=== PATIENT | male | born 1955 | race Caucasian/White ===

== ENCOUNTER 2021-10-05 13:02 | Outpatient (CLI) | payer MEDICARE, MEDICAID, SELFPAY ==
--- NOTE | ~2021-10-05 | CT_ITS ---
EXAMINATION: CT lung screening EXAM DATE: 10/05/2021 13:24 INDICATION: Nicotine Dependence Cigarettes TECHNIQUE: Spiral low dose CT of the chest without contrast. Axial, coronal and sagittal images were reviewed. The dose-length product (DLP) for this examination was 225.46 mGy-cm. The exposure was t ailored according to patient size (auto mA exposure control), and iterative reconstruction (ASIR) was used as additional dose reduction technique. There is no prior study for comparison. FINDINGS: Right middle lobe calcified granuloma. Scattered small regions of linear scarring. Mild em physema. Tracheobronchial tree is patent. There is no mediastinal, hilar or axillary lymphadenopat hy. There are no pleural or pericardial effusions. There is no pneumothorax. Heart normal in si ze. There is extensive coronary arterial calcification, arterial sclerosis. Upper abdomen is unrema rkable. There is moderate thoracic spondylosis without osteoblastic or osteolytic lesions identifie d. IMPRESSION: 1. Lung-RADS category 1S, negative (<1%chance of malignancy); recommend continued LDCT screening in 1 year. 2. Extensive coronary artery calcification; consider cardiology evaluation if not recently evaluated. Reviewed, dictated and finalized at location G. IMPRESSION: 1. Lung-RADS category 1S, negative (<1%chance of malignancy); recommend continu ed LDCT screening in 1 year. 2. Extensive coronary artery calcification; consider cardiology evaluation if n ot recently evaluated.
== END 2021-10-05 13:03 | disposition home or self-care (01) ==
PROVIDERS: PCP Internal Medicine; Visit Provider Physician Assistant
DX: F17.210 Nicotine dependence, cigarettes, uncomplicated (principal)
CPT/HCPCS: 71271

== ENCOUNTER 2022-01-26 14:31 | Outpatient (CLI) | payer MEDICARE, MEDICAID, SELFPAY ==
--- NOTE | ~2022-01-26 | US_ITS ---
US arterial ankle brachial ind INDICATION: Right lower extremity edema TECHNIQUE: Segmental pressures and plethysmographic and Doppler waveforms of the brachial and lower e xtremity arteries were obtained. COMPARISON: None. FINDINGS: Right and left brachial artery pressures of 155 mm Hg and 168 mm Hg, respectively, are concordant (no rmal difference <= 30 mmHg). The right ankle-brachial index (SUE) is 0.77 (normal >= 0.9-1.0). The right great toe-brachial index (TBI) is 0.52 (normal >= 0.60). The left SUE is 0.85. The left TBI is 0.53. IMPRESSION: 1. Diminished bilateral ankle and toe brachial indices consistent with mild peripheral arterial disea se. Reviewed, dictated and finalized at location A. IMPRESSION: 1. Diminished bilateral ankle and toe brachial indices consistent with mild per ipheral arterial disease.
== END 2022-01-26 14:32 | disposition home or self-care (01) ==
PROVIDERS: PCP Physician Assistant; Visit Provider Physician Assistant
DX: R60.0 Localized edema (principal); E11.59 Type 2 diabetes mellitus with other circulatory complications
CPT/HCPCS: 93922

== ENCOUNTER 2022-03-03 14:40 | Outpatient (CLI) | payer MEDICARE, MEDICAID, SELFPAY ==
--- NOTE | ~2022-03-03 | CT_ITS ---
EXAMINATION: CT abdomen pelvis wo con DATE: 03/03/2022 15:11 INDICATION: Umbilical hernia without obstruction or gangrene TECHNIQUE: Computed tomography (CT) of the abdomen and pelvis was performed without intravenous contr ast. The dose-length product (DLP) was 1042.60 mGy-cm. Automated exposure control and iterative recon struction technique were employed. COMPARISON: None FINDINGS: Minimal dependent atelectasis is present in the lung bases. The heart size is normal. Punct ate calcifications in an otherwise normal spleen likely represent healed granulomatous disease. The l iver, pancreas, gallbladder, and adrenal glands are normal. There is a 12 mm cyst of the right kidney . The left kidney is unremarkable. No pathologically enlarged abdominal or pelvic lymph nodes are rafal ntified. There is calcified atherosclerosis of the aorta and many of the other arteries. A retroaorti c left renal vein is noted. There is no free intraperitoneal gas or evidence of bowel obstruction. Th e appendix is normal. There is severe lumbar spondylosis. There is a small umbilical hernia containin g fat. IMPRESSION: 1. Small umbilical hernia containing fat. Reviewed, dictated and finalized at location A.
== END 2022-03-03 14:41 | disposition home or self-care (01) ==
PROVIDERS: PCP Physician Assistant; Visit Provider Physician Assistant
DX: K42.9 Umbilical hernia without obstruction or gangrene (principal)
CPT/HCPCS: 74176

== ENCOUNTER → 2022-08-10 11:52 | Outpatient (CLI) | payer MEDICARE, MEDICAID, SELFPAY ==
--- NOTE | ~2022-08-10 | XR_ITS ---
Lumbosacral Spine: AP and lateral views Clinical History: Pain Findings: The normal lordotic curve is maintained. Minimal wedging deformity of T12 and L1 are noted. There is severe degenerative disc narrowing at L2-L3. There is moderate to advanced degenerative dis c narrowing at L1-L2 and L4-L5. The sacroiliac joints are normally outlined. Impression: Minimal anterior wedging deformities of T12 and L1. Degenerative disc disease, as detailed above. Reviewed, dictated and finalized at location M. [facility] Impression: Minimal anterior wedging deformities of T12 and L1. Degenerative disc disease, as detailed above.
== END ==
PROVIDERS: PCP Nurse Practitioner Family; Visit Provider Nurse Practitioner Family
DX: M51.36 Other intervertebral disc degeneration, lumbar region (principal)
CPT/HCPCS: 72100

== ENCOUNTER 2022-12-22 13:28 | Outpatient (CLI) | payer MEDICARE, MEDICAID, SELFPAY ==
--- NOTE | ~2022-12-22 | CT_ITS ---
EXAMINATION: CT lung screening DATE: 12/22/2022 13:52 INDICATION: Personal history nicotine dependence, current smoker with 50 pack year history TECHNIQUE: Computed tomography (CT) of the chest was performed without intravenous contrast. The dose -length product (DLP) was 219.42 mGy-cm. Automated exposure control and iterative reconstruction tech Casper were employed. COMPARISON: 10/05/2021 FINDINGS: There is mild atelectasis of the lungs. Calcified pulmonary nodules and calcified right hil ar and mediastinal lymph nodes are consistent with old granulomatous disease. No pleural effusion or pneumothorax. No pathologically enlarged thoracic lymph nodes are identified. The heart size is tabitha l. There is calcified coronary artery atherosclerosis. There is a small pericardial effusion. Punctat e calcifications in an otherwise normal spleen likely represent healed granulomatous disease. There i s severe thoracic spondylosis. IMPRESSION: 1. Lung-RADS category 1: Negative. Continue annual screening with noncontrast low-dose chest CT in 12 months. Reviewed, dictated and finalized at location F. IMPRESSION: 1. Lung-RADS category 1: Negative. Continue annual screening with noncontrast l ow-dose chest CT in 12 months.
== END 2022-12-22 13:29 | disposition home or self-care (01) ==
PROVIDERS: PCP Nurse Practitioner Family; Visit Provider Nurse Practitioner Family
DX: Z12.2 Encounter for screening for malignant neoplasm of respiratory organs (principal); F17.210 Nicotine dependence, cigarettes, uncomplicated
CPT/HCPCS: 71271

== ENCOUNTER 2023-11-12 12:00 | Inpatient (IN) | payer MEDICARE, MEDICAID, SELFPAY ==
[2023-11-12] VITALS (16 sets, daily range): BP systolic 116–153; BP diastolic 52–92; PULSE 77–142; RESP 12–21; TEMP 36.4–36.6; O2SAT 97–100; BMI 27.2
--- NOTE | ~2023-11-12 | XR_ITS ---
EXAMINATION: XR chest 1V portable DATE: 11/12/2023 14:18 INDICATION: Trauma. TECHNIQUE: A single frontal view of the chest was obtained on 2 radiographs. COMPARISON: Chest CT 12/22/2022 FINDINGS: A calcified right lung nodule and calcified right hilar and mediastinal lymph nodes are con sistent with old granulomatous disease. No pleural effusion or pneumothorax. The heart size is normal . There are surgical changes of the cervical spine. IMPRESSION: 1. No acute cardiopulmonary disease. Reviewed, dictated and finalized at location A.
--- NOTE | ~2023-11-12 | CT_ITS ---
EXAMINATION: CT lumbar spine wo con DATE: 11/12/2023 15:29 INDICATION: trauma . TECHNIQUE: Computed tomography (CT) of the lumbar spine was performed without intravenous contrast. A utomated exposure control and iterative reconstruction technique were employed. The dose-length produ ct was 1141.48 mGy-cm. COMPARISON: X-ray L-spine 08/10/2022. FINDINGS: 5 nonrib-bearing lumbar-type vertebral bodies. Loss of the normal lumbar lordosis. Vertebra l bodies aligned. Stable mild height loss/wedge deformity at T12 and L1 Remaining vertebral body heig hts maintained. Severe right neural foraminal narrowing at L3-4, severe bilateral neural foraminal na rrowing at L4-5. Severe central canal narrowing at L4-5 secondary to degenerative disc ligamentum and facet change. No fracture or dislocation. Multilevel severe degenerative disc disease, including nina dging anterior and lateral osteophytes, multilevel posterior disc and osteophyte complexes that contr ibute to mild-moderate central canal narrowing at multiple levels. L2-3 fusion. Multilevel moderate f acet sclerosis and hypertrophy in the lower lumbar spine. Atherosclerotic calcifications. 18 mm left and 19 mm right iliac artery aneurysms. IMPRESSION: No acute fracture or traumatic malalignment in the lumbar spine. Multilevel severe lumbar degenerative disc disease change. Severe degenerative central canal narrowin g at L4-5. Multilevel degenerative neural foraminal narrowing. Small bilateral iliac artery aneurysms . Reviewed, dictated and finalized at location K. IMPRESSION: No acute fracture or traumatic malalignment in the lumbar spine. Multilevel severe lumbar degenerative disc disease change. Severe degenerative central canal narrowing at L4-5. Multilevel degenerative neural foraminal narro wing. Small bilateral iliac artery aneurysms.
--- NOTE | ~2023-11-12 | NM_ITS ---
EXAMINATION: NM vasile stress w perfusion DATE: 11/13/2023 10:02 INDICATION: Ventricular tachycardia. TECHNIQUE: Rest images were obtained following intravenous administration of 9.9 mCi Tc99m tetrofosmi n (Myoview). The patient was infused intravenously with Lexiscan (regadenoson). Then, 32.1 mCi Tc99m tetrofosmin (Myoview) was administered intravenously, and stress images were obtained. Data was recon structed into short axis and horizontal and vertical long axis SPECT images. Gated SPECT images were also obtained. COMPARISON: None. FINDINGS: There is a moderate-sized area of severe partially reversible perfusion defect involving th e apex and inferior wall of left ventricle, consistent with mixed infarct and ischemia. There is rodri bal hypokinesis.. Left ventricular ejection fraction measures 35%. IMPRESSION: 1. Moderate-sized area of severe mixed infarct and ischemia involving left ventricular apex and infer ior wall. 2. Global hypokinesis with left ventricular ejection fraction measuring 35%. Reviewed, dictated and finalized at location A. IMPRESSION: 1. Moderate-sized area of severe mixed infarct and ischemia involving left vent ricular apex and inferior wall. 2. Global hypokinesis with left ventricular ejection fraction measuring 35%.
--- NOTE | ~2023-11-12 | US_ITS ---
US renal BI 11/13/2023 11:40 Procedure: Realtime transabdominal ultrasound of the kidneys and bladder. Indication: Renal insufficiency Comparison: CT dated 03/03/2022 Findings: Renal echotexture is normal bilaterally without hydronephrosis, contour deforming mass or r enal calculus. There is 1.4 cm right renal cyst. The right kidney measures 10.9 cm and left kidney me asures 11.7 cm. Bladder within normal limits. Impression: 1: Unremarkable renal ultrasound. No stones, solid masses or hydronephrosis. Reviewed, dictated and finalized at location B. Impression: 1: Unremarkable renal ultrasound. No stones, solid masses or hydronephrosis.
--- NOTE | ~2023-11-12 | CT_ITS ---
EXAMINATION: CT brain wo con DATE: 11/12/2023 15:28 INDICATION: trauma . TECHNIQUE: Computed tomography (CT) of the head was performed without intravenous contrast. The mA wa s adjusted according to patient size. Iterative reconstruction technique was employed. The dose-lengt h product was 605.33 mGy-cm. COMPARISON: None. FINDINGS: No acute intracranial hemorrhage or extra-axial fluid collection. No hydrocephalus, mass, or herniation. No acute ischemic infarct. Unremarkable dural venous sinus attenuation. No acute osseous abnormality. The aerated spaces are clear. Mild atrophy and chronic white matter change. Atherosclerotic intracranial calcification. Bilateral l ens replacements. IMPRESSION: No acute intracranial process. Reviewed, dictated and finalized at location K.
--- NOTE | ~2023-11-12 | MR_ITS ---
EXAMINATION: MR lumbar spine wo/w con DATE: 11/15/2023 10:57 INDICATION: Severe low back pain TECHNIQUE: Magnetic resonance imaging (MRI) of the lumbar spine was performed without and with 15 mL Multihance intravenous contrast. Sequences included sagittal T2-weighted FSE, sagittal T2-weighted FS FSE, and sagittal and axial T1-weighted FSE. Postcontrast sequences included axial T2-weighted FSE, sagittal T1-weighted FSE, and axial and sagittal T1-weighted FS FSE. COMPARISON: CT dated 11/12/2023 and 03/03/2022 FINDINGS: 3-4 mm retrolisthesis L1 on L2. The L2-L3 disc space is solidly fused. There is moderate right-sided predominant disc height loss at L1-L2 and severe disc height loss at L4-L5, both with associated prom inent fibrovascular and Modic type III sclerotic endplate changes. There is mild likely reactive enha ncement along the margins of the endplates. There are some erosive endplate changes at both levels ev ident on the recent prior CT which appear to been present but slightly less advanced on the CT of the abdomen and pelvis from over one year prior on 03/03/2022. This along with the asymmetry of the endpl ate changes and the presence of vacuum phenomena as opposed to fluid on the prior CT argues for chron ic degenerative endplate manager change more aggressive osteolysis such as in the setting of discitis an d osteomyelitis. Linear low signal intensity likely sub endplate impression fracture lines underlying small central depressions of portions of the right inferior endplate of L1 and right superior endpla te of L2. Unchanged chronic 20% anterior vertebral body height loss at T12 which could be either phys iologic or sequela of chronic compression fracture. Mild disc height loss at T11-T12 and L3-L4. The c onus medullaris terminates at T12-L1. There is normal signal in the caudal spinal cord with no abnorm ally enhancing cord lesions. Paravertebral soft tissues are unremarkable. The following disc levels a re specifically discussed: T12-L1: Very small right paracentral disc protrusion. There is moderate right and severe left facet j oint osteoarthritis. There is no neural foraminal stenosis. There is no central canal stenosis. L1-L2: Disc is bulging with annular fissure. There is mild left and moderate right facet joint osteoa rthritis. There is mild left and moderate right neural foraminal stenosis. There is mild central jane l stenosis with mild narrowing of the left and right lateral recesses. L2-L3: Endplate osteophytes span the solidly fused disc space. There is mild bilateral facet joint os teoarthritis. There is moderate left and mild to moderate right neural foraminal stenosis. There is m ild central canal stenosis with narrowing of the lateral recesses, mild on the right and moderate on the left. L3-L4: Disc is bulging. There is moderate bilateral facet joint osteoarthritis. There is moderate to severe right and moderate left neural foraminal stenosis. There is mild central canal stenosis with m ild area of the left and right lateral recesses. L4-L5: Disc is bulging with small right paracentral heterotopic ossification. There is severe bilater al facet joint osteoarthritis. There is moderate right and moderate to severe left neural foraminal s tenosis. There is moderate central canal stenosis with moderate narrowing of the left and right later al recesses. L5-S1: The disc does not extend beyond the endplate margin. There is severe bilateral facet joint ost eoarthritis. There is no neural foraminal stenosis. There is no central canal stenosis. IMPRESSION: 1. Severe lumbar spondylosis with prominent degenerative endplate and some endplate changes at L1-L2 and L4-L5. 2. Linear low signal intensity likely recent subacute endplate fracture lines associated with mild ri ght-sided inferior endplate compression fracture/most notable at L1 and right-sided superior endplate compression fracture/Schmorl's node a
--- NOTE | ~2023-11-12 | NM_ITS ---
EXAMINATION: NM lung vent and perfusion DATE: 11/12/2023 15:49 INDICATION: Elevated d-dimer. TECHNIQUE: The patient breathed 10.1 mCi xenon-133 for ventilation images. 5.5 mCi Tc-99m MAA was adm inistered intravenously for perfusion images. Scintigraphic images of the chest were obtained. COMPARISON: X-ray chest, same date FINDINGS: The single breath ventilation image demonstrates no defects. Ventilation washout images show no defec ts or trapping. Perfusion images show no defects. IMPRESSION: 1. Low probability for pulmonary embolism. Reviewed, dictated and finalized at location K.
--- NOTE | ~2023-11-12 | US_ITS ---
EXAMINATION: US venous doppler [facility] DATE: 11/12/2023 16:28 INDICATION: Lower limb pain. TECHNIQUE: Grayscale ultrasound images without and with compression and Doppler ultrasound images of the bilateral lower extremity veins were obtained. COMPARISON: None. FINDINGS: The visualized portions of right common femoral vein, profunda (deep) femoral vein, femoral vein, pop liteal vein, peroneal veins, posterior tibial veins, and greater saphenous vein outflow are patent. The visualized portions of left common femoral vein, profunda femoral vein, femoral vein, popliteal v ein, peroneal veins, posterior tibial veins, and greater saphenous vein outflow are patent. IMPRESSION: 1. No deep venous thrombosis. Reviewed, dictated and finalized at location A.
--- NOTE | ~2023-11-12 | CT_ITS ---
EXAMINATION: CT cervical spine wo con DATE: 11/12/2023 15:28 INDICATION: Neck pain. Trauma. TECHNIQUE: Computed tomography (CT) of the cervical spine was performed without intravenous contrast. Automated exposure control and iterative reconstruction technique were employed. The dose-length pro duct was 225.21 mGy-cm. COMPARISON: None FINDINGS: There is 2 mm anterolisthesis of C3 on C4. There is mild chronic anterior wedging of T1 genevieve tebral body. There is mildly decreased disc height at C2-C3 and severely decreased disc height from C 4-C5 through C6-C7. There is interbody fusion at C6-C7. There are left-sided laminoplasties from C5 t o C7. The following disc levels are specifically discussed: C2-C3: There is severe right and moderate left uncovertebral joint osteoarthritis. There is severe bi lateral facet joint osteoarthritis. There is mild bilateral neural foraminal stenosis. There is mild central canal stenosis. C3-C4: There is mild right and moderate left uncovertebral joint osteoarthritis. There is severe bila teral facet joint osteoarthritis. There is mild right and moderate left neural foraminal stenosis. Th ere is mild central canal stenosis. C4-C5: There is severe bilateral uncovertebral joint osteoarthritis. There is moderate bilateral face t joint osteoarthritis. There is mild right and moderate left neural foraminal stenosis. There is mil d central canal stenosis. C5-C6: There is severe lateral uncovertebral joint osteoarthritis. There is mild bilateral facet join t osteoarthritis. There is mild right and mild left neural foraminal stenosis. There is mild central canal stenosis with posterior decompression. C6-C7: There is severe bilateral uncovertebral joint hypertrophy. There is mild bilateral facet joint hypertrophy. There is mild bilateral neural foraminal stenosis. There is mild central canal stenosis with posterior decompression. C7-T1: There is no uncovertebral joint osteoarthritis. There is severe bilateral facet joint osteoart hritis. There is mild bilateral neural foraminal stenosis. There is no central canal stenosis. IMPRESSION: 1. No fracture. 2. Severe cervical spondylosis. Reviewed, dictated and finalized at location A.
--- NOTE | 2023-11-12 12:27 | ECG_ITS ---
SEE SCANNED COPY FOR CONFIRMED REPORT. MTDD
[2023-11-12 12:41] LABS: Basophils Percent Auto 0.2 % (0.2-1.2); Eosinophils Absolute Auto 0.1 K/mm3 (0-0.3); Eosinophils Percent Auto 0.8 % (0-4.4); Hemoglobin 12.3 g/dL (14.0-18.0); Immature Granulocyte Absolute 0.07 K/mm3 (0.00-0.031); Immature Granulocyte Percent A 0.6 % (0-0.5); Lymphocytes Absolute Auto 1.12 K/mm3 (0.9-3.2); Lymphocytes Percent Auto 9.6 % (18.3-44.2); Mean Corpuscular HGB Conc 31.5 g/dl (32-36); Mean Corpuscular Hemoglobin 28.7 pg (26-34); Mean Corpuscular Volume 90.9 fl (80-100); Monocytes Absolute Auto 0.6 K/mm3 (0.1-0.6); Monocytes Percent Auto 4.8 % (2.6-8.5); Neutrophils Absolute Auto 9.8 K/mm3 (1.3-6.7); Platelet Count Result 274 k/mm3 (150-375); Red Blood Count 4.29 M/mm3 (4.6-6.20); Red Cell Distribution Width 13.7 % (11.5-14.5); White Blood Count 11.7 K/mm3 (4.5-10.0)
[2023-11-12 12:50] LABS: Lactic Acid Reflex 1.6 mmol/L (0.7-2.0)
--- NOTE | 2023-11-12 12:50 | PC.NURSE ---
Pt to CT via stretcher on tele and O2 monitor
[2023-11-12 12:52] LABS: Alanine Aminotransferase 41 U/L (6-50); Albumin Level 3.8 g/dL (3.5-5.1); Alkaline Phosphatase 120 U/L (38-126); Anion Gap 8 mmol/L (4-12); Aspartate Amino Transferase 26 U/L (17-59); Bilirubin,Total 0.5 mg/dL (0.2-1.3); Blood Urea Nitrogen 59 mg/dL (9-20); Calcium 9.9 mg/dL (8.4-10.2); Carbon Dioxide 25 mmol/L (22-30); Chloride 108 mmol/L (98-107); Estimated CRCL calculation 33 ml/min; Estimated Glomerular Filt Rate 32; Glucose 160 mg/dL (65-110); Magnesium 2.1 mg/dL (1.6-2.3); Potassium 3.4 mmol/L (3.4-5.0); Sodium 141 mmol/L (137-145)
[2023-11-12 12:57] LABS: INR 1.1; Partial Thromboplastin Time 31.1 Seconds (22.3-36.8); Prothrombin Time 15.1 Seconds (11.1-14.7)
--- NOTE | 2023-11-12 12:57 | ECG_ITS ---
SEE SCANNED COPY FOR CONFIRMED REPORT. MTDD
--- NOTE | 2023-11-12 12:58 | ECG_ITS ---
SEE SCANNED COPY FOR CONFIRMED REPORT. MTDD
--- NOTE | 2023-11-12 13:09 | ED.FALL ---
HPI - Fall General Chief Complaint: Fall Stated Complaint: mult. fall, pain all over Time Seen by Provider: 11/12/23 12:05 History of Present Illness HPI Narrative: 59-year-old male presenting emergency department for evaluation for multiple falls over last few days. Patient states he has had 5 falls. Patient states today he was sitting in his chair and he flipped forward striking his head. Patient complains of head and lower back pain. While in the emergency department patient had a short run of a wide complex tachycardia the lasted approximately 1 minute. patient's EMR states he has a prior history of OR but patient denies any prior CAG of OR states he only had a heart murmur. Patient does have history of COPD diabetes and asthma. Related Data Home Medications Medication Instructions Recorded Confirmed albuterol sulfate 90 mcg/actuation 1 puff inhalation Q4H PRN 03/10/22 11/12/23 aerosol inhaler (Proventil HFA) Shortness Of Breath Or Wheezing aspirin 81 mg tablet,delayed 81 mg PO DAILY 03/10/22 11/12/23 release (Adult Low Dose Aspirin) bupropion HCl 150 mg 24 hr tablet, 150 mg PO QAM 03/10/22 11/12/23 extended release (Wellbutrin XL) buspirone 10 mg tablet 10 mg PO TID 03/10/22 11/12/23 carvedilol 3.125 mg tablet 3.125 mg PO Q12H 03/10/22 11/12/23 gabapentin 600 mg tablet 600 mg PO TID 03/10/22 11/12/23 lisinopril 20 mg tablet 20 mg PO HS 03/10/22 11/12/23 calcium carbonate 600 mg-vitamin 1 tablet PO DAILY 11/12/23 11/12/23 D3 20 mcg (800 unit) tablet gemfibrozil 600 mg tablet 600 mg PO TIDWM 11/12/23 11/12/23 hydrocodone 10 mg-acetaminophen 1 tablet PO BID 11/12/23 11/12/23 325 mg tablet meclizine 25 mg tablet 25 mg PO TID PRN Dizziness Or 11/12/23 11/12/23 Vertigo metformin 1,000 mg tablet 500 mg PO TIDWM 11/12/23 11/12/23 montelukast 10 mg tablet 10 mg PO HS 11/12/23 11/12/23 nifedipine 30 mg tablet,extended 30 mg PO DAILY 11/12/23 11/12/23 release 24 hr omeprazole 20 mg capsule,delayed 20 mg PO DAILY 11/12/23 11/12/23 release simvastatin 40 mg tablet 40 mg PO HS 11/12/23 11/12/23 torsemide 20 mg tablet 40 mg PO DAILY 11/12/23 11/12/23 Allergies Allergy/AdvReac Type Severity Reaction Status Date / Time No Known Allergies Allergy Verified 11/12/23 12:33 Review of Systems Review of Systems: All systems reviewed & are unremarkable except as noted in HPI and below PMFSH Past Medical History Medical History Asthma COPD (chronic obstructive pulmonary disease) Diabetes Heart attack Surgical History Surgical History History of back surgery History of heart bypass surgery Social History Social History Smoking status: Never smoker Alcohol intake: never Substance use: never Do You Feel Safe in your Home?: Yes Lack of Transportation: No Lack of Food: Never True Current Housing: I Have Housing Concerned About Future Housing: No Difficulty Paying Gas/Electric Bills: No Difficulty Paying for Meds: No Currently Unemployed: No Education: Don't Know Difficulty w/ Childcare or Family Care: No Spiritual care concerns: No Exam Narrative: APPEARANCE: Well appearing, no pain, no distress, well-nourished. HEAD: normocephalic, atraumatic. EYES: PERRLA/EOMI, conjunctivae clear. NOSE: Normal no drainage EARS:TMS clear with good light reflex. THROAT: Pharynx clear, no exudate. NECK: Supple. No adenopathy, no masses. RESPIRATORY: Airway patent, respirations nonlabored. Clear to auscultation bilaterally, no rales, rhonchi, wheezing. CARDIOVASCULAR: Regular rate and rhythm without murmurs rubs or gallops. ABDOMINAL: Soft, nontender, nondistended, normal bowel sounds MUSCULOSKELETAL: Moves all extremities. Strength/ROM intact, No edema, No calf tenderness. NEURO: Alert. Cranial nerves II through XII inta
[2023-11-12] MEDS: AMIODARONE 150 MG/D5W 100 ML 150 MG/100 ML BAG 600 MG IV CONT (13:11)
[2023-11-12 13:24] LABS: Thyroid Stimulating Hormone Reflex 0.661 uIU/mL (0.465-4.68)
[2023-11-12] MEDS: AMIODARONE 360 MG/D5W 200 ML 360 MG/200 ML BAG 33.33 MG IV CONT (13:24)
--- NOTE | 2023-11-12 13:31 | PC.NURSE ---
Multiple bouts of arrhythmias and EKG changes. Pt A&Ox2 per baseline during arrhythmias. First arrhythmia noted at 1217, EDP made aware and at bedside EKG was performed but pt went back to his regular rhythm, Monitor strips printed out from room monitor. This RN and EDP retrieved pt from CT scan and EKG performed immediately at 1255. Pt brought back to room and another EKG was done at 1259. Pt started on Amiodarone as per MAR
[2023-11-12] MEDS: SODIUM CHLORIDE 0.9% IV 1,000 ML 500 ML IV CONT (16:43)
--- NOTE | 2023-11-12 16:43 | PM.CNCAR ---
Assessment and Plan Assessment and plan (1) Falls frequently: Code(s): R29.6 - Repeated falls Status: Acute Assessment and Plan: Could be due to weakness in legs from arthritis or related to arrhythmias. (2) Wide-complex tachycardia: Code(s): R00.0 - Tachycardia, unspecified Status: Acute Assessment and Plan: Started on Amiodarone to prevent recurrences. Obtain echo. Obtain lexiscan myoview stress test in AM to r/o CAD as a cause. (3) Hypertension: Code(s): I10 - Essential (primary) hypertension Status: Acute Assessment and Plan: Stable. (4) Dyslipidemia: Code(s): E78.5 - Hyperlipidemia, unspecified Status: Acute Assessment and Plan: On Simvastatin. History of Present Illness History of Present Illness Consult date/time: 11/12/23 16:43 Reason For Visit: mult. fall, pain all over Narrative: 67 yr old man presents to ER for falls. He has a history of DM, hypertension, dyslipidemia, COPD. Reports in last 3 weeks he fell 5 times either while seated, standing or walking. He does not have dizziness or passing out. He walks with a cane and states he can walk a mile without any problems. He has shooting electrical pain in his back. Denies chest pain, sob, orthopnea, PND, edema, dizziness, palpitations. Review of Systems Review of Systems: All systems reviewed & are unremarkable except as noted in HPI and below Constitutional: Constitutional: Reports as per HPI, Denies chills and Denies fever(s) Cardiovascular: Cardiovascular: Reports as per HPI, Denies chest pain and Denies irregular heart rhythm Respiratory: Respiratory: Reports as per HPI and Denies dyspnea Gastrointestinal: Gastrointestinal: Reports as per HPI and Denies abdominal pain Genitourinary: Genitourinary: Reports as per HPI and Denies dysuria Musculoskeletal: Musculoskeletal: Reports as per HPI and Reports back pain Neurologic: Reports as per HPI, Denies dizziness and Denies syncope [facility] Past Medical History Medical History Asthma COPD (chronic obstructive pulmonary disease) Diabetes Heart attack Surgical History Surgical History History of back surgery History of heart bypass surgery Social History Social History Smoking status: Current every day smoker Alcohol intake: current Meds Home Medications and Allergies Home Medications Medication Instructions Recorded Confirmed Type albuterol sulfate 90 mcg/actuation 1 puff inhalation Q4H PRN 03/10/22 05/15/22 History aerosol inhaler (Proventil HFA) aspirin 81 mg tablet,delayed 81 mg PO DAILY 03/10/22 05/15/22 History release (Adult Low Dose Aspirin) bupropion HCl 150 mg 24 hr tablet, 150 mg PO QAM 03/10/22 05/15/22 History extended release (Wellbutrin XL) buspirone 10 mg tablet 10 mg PO TID 03/10/22 05/15/22 History carvedilol 3.125 mg tablet 3.125 mg PO Q12H 03/10/22 05/15/22 History gabapentin 600 mg tablet 600 mg PO TID 03/10/22 05/15/22 History gemfibrozil 600 mg tablet 600 mg PO DAILY 03/10/22 05/15/22 History lisinopril 20 mg tablet 20 mg PO BID 03/10/22 05/15/22 History meclizine 25 mg tablet 25 mg PO BID PRN 03/10/22 05/15/22 History metformin 1,000 mg tablet 1,000 mg PO DAILY 03/10/22 05/15/22 History montelukast 5 mg chewable tablet 10 mg PO DAILY 03/10/22 05/15/22 History (Singulair) simvastatin 20 mg tablet 20 mg PO DAILY 03/10/22 05/15/22 History torsemide 20 mg tablet 20 mg PO QAM 03/10/22 05/15/22 History Allergies Allergy/AdvReac Type Severity Reaction Status Date / Time No Known Allergies Allergy Verified 11/12/23 12:33 Vital Signs Vital Signs - 24 hr 11/12/23 11:39 11/12/23 13:11 11/12/23 13:18 Temperature 97.9 F Pulse Rate 90 142 H 103 H Respiratory Rate 21 H 12 Blood Pressure 142/57 H
--- NOTE | 2023-11-12 17:09 | PM.IMHP ---
H&P: HPI History of Present Illness Date/Time: 11/12/23 19:00 Chief Complaint: Multiple falls, pain all over. Narrative: This is a 67-year-old male with borderline diabetes, hypertension, hyperlipidemia, chronic obstructive pulmonary disease, anxiety, depression, and neuropathy who presented to the emergency department via EMS from home for evaluation of pain all over and multiple falls. The patient provides the following history. He lives with 2 of his sons and 1 of their girlfriend and he tells me that they never pick anything up in that he has been tripping over stuff. Several days ago he reportedly tripped over a box and landed on his backside. He reports increasing, diffuse low back pain since that time. He describes a severe, catching pain which occurs when he goes to stand up and walk and it sounds as though that is the reason for his subsequent falls. The pain radiates to the buttocks but not down either leg. He has lower extremity neuropathy but though symptoms have not changed. He has not appreciated any weakness in the legs. He also denies urinary retention, bowel incontinence, and saddle anesthesia. Today he tells me that he was drinking a cup of coffee at the kitchen table and that he has lost his balance to the side; apparently the chair he was sitting and had rollers on the bottom. He struck his head on the floor and has a small abrasion on the crown of his head. He was on the floor for 2 hours before calling the ambulance. He denies loss of consciousness in the falls. He also denies vertigo, visual changes, facial droop, focal weakness, paresthesias, difficulties speaking and swallowing, chest and pleuritic pain, palpitations, cough, shortness of breath, nausea, vomiting, diarrhea, and dysuria. In the ED: Vital signs were stable on arrival. Not long thereafter however he went into a wide complex tachycardia of which he was really asymptomatic. He was bolused with amiodarone is currently on an amiodarone drip. Labs were significant for WBC count of 11.7, hemoglobin 12.3, ESR 77, D-dimer 5.30, BUN 59, creatinine 2.10, lactic acid 1.6, troponin 0.059, CRP 6.5, TSH 0.661. Brain CT showed no acute intracranial process. Cervical spine CT showed severe cervical spondylosis but no fracture. Lumbar spine CT showed multilevel severe lumbar degenerative disc disease change if severe degenerative central canal narrowing at L4-L5 and multilevel degenerative neural foraminal narrowing but no acute fracture or traumatic malalignment. V/Q scan showed low probability for PE and lower extremity venous Doppler ultrasounds were negative for DVT. He is being admitted in this setting for further evaluation. Review of Systems Review of Systems: 12 systems were reviewed and are negative except for as per HPI. [facility] Past Medical History Medical History (Updated 11/12/23 @ 23:01 by Anabell Dumont PA-C) Asthma Chronic obstructive pulmonary disease Hypertension Prediabetes Surgical History Surgical History (Updated 11/12/23 @ 22:51 by Anabell Dumont PA-C) History of ankle surgery History of back surgery Social History Social History (Updated 11/12/23 @ 22:51 by Anabell Dumont PA-C) Social History: Surrogate medical decision maker: andrea Cho. Code status: Full code. Smoking status: Former smoker Alcohol intake: never Substance use: never Do You Feel Safe in your Home?: Yes Lack of Transportation: No Lack of Food: Never True Current Housing: I Have Housing Concerned About Future Housing: No Difficulty Paying Gas/Electric Bills: No Difficulty Paying for Meds: No Currently Unemployed: No Education: Don't Know Difficulty w/ Childcare or Family Care: No Spiritual care concerns: No Meds Home Medications and Allergies Home Medications Medication Instructions Recorded Confirmed Type albuterol sulfate 90 mcg/actuation 1 puff inhalation Q4H PRN 03/10/22 11/12/23 History aeroso
--- NOTE | 2023-11-12 17:41 | ADMGEN ---
This patient, Jose Hernandez, was admitted to IMU Room 204-01. Patient/family oriented to hospital policies and general routines including ID bracelet, bed and alarms, visiting hours, pain management, procedures, bathroom and other care routines, personal items, smoking policy, room service/diet, and visiting hours. Information on how to activate the Rapid Response Team has been discussed. Patient/Family are encouraged to report perceived risks to care and to ask questions if they do not understand what they are told or what they should do.
--- NOTE | 2023-11-12 18:14 | PC.NURSE ---
Dr. Muniz notified of pt having a runs of SVT. Pt is currently on an Amiodarone drip. No new orders at this time.
[2023-11-12] MEDS: AMIODARONE 360 MG/D5W 200 ML 360 MG/200 ML BAG 16.67 MG IV CONT (19:37)
[2023-11-12 20:38] LABS: Uric Acid 10.9 mg/dL (3.5-8.5)
[2023-11-12 20:41] LABS: CRP 6.5 mg/dL (<1.0)
[2023-11-12 20:52] LABS: Troponin I 0.059 ng/mL (0.000-0.034)
[2023-11-12 20:55] LABS: Procalcitonin 0.2 ng/mL
[2023-11-12 21:09] LABS: Erythrocyte Sedimentation Rate 77 mm/hr (0-20)
--- NOTE | 2023-11-12 21:58 | PC.NURSE ---
Bladder scan done x 2. 0ml retaining.
[2023-11-12 23:21] LABS: Creatine Kinase 35 U/L (55-170)
[2023-11-12 23:23] LABS: Hemoglobin A1C 6.2 % (<5.7)
[2023-11-12] MEDS: GABAPENTIN 300 MG CAPSULE 600 MG PO (23:43)
[2023-11-12] MEDS: carvediloL 3.125 MG TABLET PO (23:43)
[2023-11-12] MEDS: SIMVASTATIN 20 MG TABLET 40 MG PO (23:43)
[2023-11-12] MEDS: ACETAMINOPHEN 325 MG TABLET 650 MG PO (23:44)
[2023-11-12] MEDS: MONTELUKAST SODIUM 10 MG TABLET PO (23:44)
[2023-11-12] MEDS: SODIUM CHLORIDE 0.9% IV 1,000 ML 100 ML IV CONT (23:46)
[2023-11-13] VITALS (22 sets, daily range): BP systolic 101–144; BP diastolic 49–80; PULSE 61–101; RESP 16–28; TEMP 36.2–36.6; O2SAT 96–100
--- NOTE | 2023-11-13 | ECHO_ITS ---
Patient Info Name: Jose Hernandez Age: 68 years : 1955 Gender: Male Ht: 67 in Wt: 198 lbs BSA: 2.09 m2 HR: 80 bpm BP: 101 / 58 mmHg Technical Quality: Good Exam Date: 11/13/2023 10:35 AM Exam Location: Echo Lab Patient Status: Inpatient Admit Date: 11/13/2023 Staff Ordering Physician: Monty Muniz DO Private Duty Nurse: Cherry Ellsworth RDCS Attending Provider: Mendoza Mujica MD Referring Physician: Flavio ROSALES; Exam Type: CA echo doppler color flow Study Info Indications - VT Complete two-dimensional, color flow and Doppler transthoracic echocardiogram is performed. Summary 1. Complete two-dimensional, color flow and Doppler transthoracic echocardiogram is performed. 2. Left ventricular chamber dimension is severely enlarged. 3. Left ventricular systolic function is severely globally reduced, estimated at 30-35%. 4. The left ventricular diastolic function is grade I diastolic dysfunction. 5. E/e' 14 is mildly elevated. 6. Left atrial chamber dimension is moderately enlarged. 7. There is mild aortic valve sclerosis. 8. There is mild aortic valve regurgitation. 9. The mitral valve has moderately calcified annulus. 10. There is mild to moderate mitral valve regurgitation. 11. There is trace tricuspid valve regurgitation. 12. No pulmonary hypertension, estimated pulmonary arterial systolic pressure is 23 mmHg. 13. There is trace pulmonic regurgitation. Left Ventricle E/e' 14 is mildly elevated. Left ventricular systolic function is severely globally reduced, estimated at 30-35%. Left ventricular chamber dimension is severely enlarged. The left ventricular diastolic function is grade I diastolic dysfunction. Right Ventricle Right ventricular systolic function is normal and with normal TAPSE 2.9 cm. Right ventricular chamber dimension is normal. Left Atria Left atrial chamber dimension is moderately enlarged. Right Atria Right atrial chamber dimension is normal. Aortic Valve The aortic valve is trileaflet. There is mild aortic valve sclerosis. There is no aortic valve stenosis. There is mild aortic valve regurgitation. Pulmonic Valve There is trace pulmonic regurgitation. Mitral Valve The mitral valve has moderately calcified annulus. There is no mitral valve stenosis. There is mild to moderate mitral valve regurgitation. Tricuspid Valve There is trace tricuspid valve regurgitation. No pulmonary hypertension, estimated pulmonary arterial systolic pressure is 23 mmHg. Pericardium/Pleural There is no pericardial effusion. Inferior Vena Cava Normal inferior vena cava with >50% collapse upon inspiration consistent with normal right atrial pressure, 5 mmHg. Aorta The aortic root size at the sinus of Valsalva is normal. Left Ventricular Outflow Tract Name Value Normal LVOT 2D LVOT Diameter 2.2 cm LVOT Doppler LVOT Peak Gradient 2 mmHg LVOT Mean Gradient 1 mmHg LVOT VTI 16 cm LVOT VTI/AV VTI Ratio 0.6 LVOT Stroke Volume 65 ml LVOT CO 4.3 l/min LVOT CI
[2023-11-13 04:28] LABS: Hematocrit 35.3 % (42.0-52.0); Hemoglobin 11.5 g/dL (14.0-18.0); Mean Corpuscular HGB Conc 32.6 g/dl (32-36); Mean Corpuscular Hemoglobin 29.1 pg (26-34); Mean Corpuscular Volume 89.4 fl (80-100); Mean Platelet Volume 11.5 fl (7.4-10.4); Platelet Count Result 231 k/mm3 (150-375); Red Blood Count 3.95 M/mm3 (4.6-6.20); Red Cell Distribution Width 13.4 % (11.5-14.5); White Blood Count 8.1 K/mm3 (4.5-10.0)
[2023-11-13 04:42] LABS: Alanine Aminotransferase 37 U/L (6-50); Albumin Level 3.4 g/dL (3.5-5.1); Alkaline Phosphatase 100 U/L (38-126); Anion Gap 9 mmol/L (4-12); Aspartate Amino Transferase 32 U/L (17-59); Bilirubin,Total 0.3 mg/dL (0.2-1.3); Blood Urea Nitrogen 47 mg/dL (9-20); Calcium 9.1 mg/dL (8.4-10.2); Carbon Dioxide 20 mmol/L (22-30); Chloride 112 mmol/L (98-107); Creatine Kinase 33 U/L (55-170); Estimated CRCL calculation 33 ml/min; Estimated Glomerular Filt Rate 38; Glucose 127 mg/dL (65-110); Magnesium 1.9 mg/dL (1.6-2.3); Potassium 3.1 mmol/L (3.4-5.0); Sodium 141 mmol/L (137-145)
[2023-11-13 04:57] LABS: Troponin I 0.061 ng/mL (0.000-0.034)
[2023-11-13 05:30] LABS: Vitamin B12 > 1000.0 pg/mL (239-931)
[2023-11-13] MEDS: gemfibroziL 600 MG TABLET PO (06:12)
[2023-11-13] MEDS: GABAPENTIN 300 MG CAPSULE 600 MG PO ×3 (06:12→22:05)
[2023-11-13] MEDS: AMIODARONE 360 MG/D5W 200 ML 360 MG/200 ML BAG 16.67 MG IV CONT ×2 (06:50→17:09)
--- NOTE | 2023-11-13 07:37 | PM.PNCARD ---
Progress Note: A&P Assessment and Plan (1) Falls frequently: Code(s): R29.6 - Repeated falls Status: Acute Assessment and Plan: Could be due to weakness in legs from arthritis or related to arrhythmias. (2) Wide-complex tachycardia: Code(s): R00.0 - Tachycardia, unspecified Status: Acute Assessment and Plan: Started on Amiodarone to prevent recurrences. Obtain echo today Obtain lexiscan myoview stress test today to r/o CAD as a cause. Continue Amiodarone drip for today as still having PVT and PAT. Obtain EKG. (3) Hypertension: Code(s): I10 - Essential (primary) hypertension Status: Acute Assessment and Plan: Low normal. Stop Nifedipine. (4) Dyslipidemia: Code(s): E78.5 - Hyperlipidemia, unspecified Status: Acute Assessment and Plan: Change Simvastatin to Pravastatin as he is going to be on Amiodarone. Subjective Date/time seen: 11/13/23 07:37 Interval history: Denies chest pain, sob, dizziness. Exam Const: General: cooperative, healthy appearing and comfortable Orientation/consciousness: oriented to person, oriented to place and oriented to time Resp: Auscultation: clear to auscultation bilaterally, no crackles, no rales, no rhonchi and no wheezes Cardio: Rate: regular rate Rhythm: regular rhythm Heart sounds: no murmurs Peripheral pulses: dorsalis pedis present Neuro: General: oriented to person, oriented to place and oriented to time Extrem: Right lower extremity: no edema Left lower extremity: no edema Objective Data Vital Signs Vital Signs: Vital Signs - 24 hr 11/12/23 11:39 11/12/23 13:11 11/12/23 13:18 Temperature 97.9 F Pulse Rate 90 142 H 103 H Respiratory Rate 21 H 12 Blood Pressure 142/57 H 143/80 H 153/79 H Pulse Oximetry 100 100 Oxygen Delivery Room Air 11/12/23 13:24 11/12/23 13:23 11/12/23 14:24 Temperature Pulse Rate 107 H 107 H 87 Respiratory Rate 14 Blood Pressure 153/79 H 153/79 H 116/66 Pulse Oximetry 99 Oxygen Delivery 11/12/23 16:20 11/12/23 17:48 11/12/23 17:55 Temperature 97.6 F Pulse Rate 98 77 Respiratory Rate 18 12 Blood Pressure 124/52 L 124/92 H Pulse Oximetry 100 100 Oxygen Delivery Room Air 11/12/23 17:55 11/12/23 18:06 11/12/23 18:06 Temperature Pulse Rate 92 81 88 Respiratory Rate Blood Pressure 123/77 123/77 Pulse Oximetry Oxygen Delivery 11/12/23 18:00 11/12/23 18:08 11/12/23 19:37 Temperature 97.8 F Pulse Rate 88 91 Respiratory Rate 18 Blood Pressure 148/55 H 123/77 134/90 Pulse Oximetry 100 Oxygen Delivery 11/12/23 20:00 11/12/23 20:00 11/12/23 20:00 Temperature 97.8 F Pulse Rate 91 78 Respiratory Rate 18 Blood Pressure 134/90 Pulse Oximetry 100 Oxygen Delivery Room Air 11/12/23 22:00 11/12/23 22:00 11/12/23 20:00 Temperature 97.6 F Pulse Rate 120 H 87 78 Respiratory Rate 18 Blood Pressure 119/60 Pulse Oximetry 97 Oxygen Delivery 11/12/23 22:00 11/12/23 23:43 11/13/23 00:00 Temperature 97.2 F L Pulse Rate 120 H 85 88 Respiratory Rate 18 Blood Pressure 119/60 144/77 H Pulse Oximetry 97 Oxygen Delivery 11/13/23 00:00 11/13/23 00:00 11/13/23 01:59 Temperature Pulse Rate 96 88 Respiratory Rate Blood Pressure 128/65 Pulse Oximetry Oxygen Delivery Room Air 11/13/23 02:00 11/13/23 00:00 11/13/23 02:00 Temperature Pulse Rate 79 88 88 Respiratory Rate Blood Pressure 144/77 H 128/65 Pulse Oximetry Oxygen Delivery 11/13/23 04:20 11/13/23 04:00 11/13/23 04:00 Temperature 97.1 F L Pulse Rate 80 80 Respiratory Rate 18 Blood Pressure 101/58 L 101/58 L Pulse Oximetry 96 Oxygen Delivery Room Air 11/13/23 04:00 11/13/23 06:28 11/13/23 06:00 Temperature 97.5 F L Pulse Rate 83 75 79 Respiratory Rate 18 Blood Pressure 119/60 Pulse Oximetry 100 Oxygen Delivery 11/13/23 06:00 10/16
--- NOTE | 2023-11-13 08:00 | EST_ITS ---
Patient Info Name: Jose Hernandez Age: 68 years : 1955 Gender: Male Ht: 67 in Wt: 174 lbs BSA: 1.95 m2 HR: 66 bpm BP: 143 / 83 mmHg Heart Rhythm: Sinus Arrhythmia Exam Date: 11/13/2023 9:16 AM Exam Location: Echo Lab Patient Status: Outpatient Admit Date: 11/12/2023 Staff Ordering Physician: Monty Muniz DO Attending Provider: Mendoza Mujica MD Exercise Technologist: Zora Mendieta CT Exercise Physician: Monty Muniz DO Exam Type: CA stress vasile w NM Study Info Indications I47.2 - Ventricular tachycardia A regadenoson stress test was performed. Summary 1. 1. Negative lexiscan stress test for ischemic ST changes by ECG criteria. 2. 2. Transient episodes of atrial tachycardia. 3. 3. Nuclear scan to follow and will be reported separately. Please correlate with it. 4. 4. Patient informed of the above results. Protocol: Lexiscan Stress ECG Details Stage: REST Duration (min): 2 min : 1 sec HR (bpm): 67 SBP (mmHg): 143 DBP (mmHg): 83 Stage: REST Duration (min): 7 min : 55 sec HR (bpm): 77 SBP (mmHg): 143 DBP (mmHg): 83 Stage: STAGE 1 Duration (min): 1 min : 0 sec HR (bpm): 82 SBP (mmHg): 127 DBP (mmHg): 69 Stage: RECOVERY Duration (min): 1 min : 0 sec HR (bpm): 102 SBP (mmHg): 127 DBP (mmHg): 69 Stage: RECOVERY Duration (min): 2 min : 0 sec HR (bpm): 87 SBP (mmHg): 127 DBP (mmHg): 69 Stage: RECOVERY Duration (min): 3 min : 0 sec HR (bpm): 84 SBP (mmHg): 118 DBP (mmHg): 65 Stage: RECOVERY Duration (min): 3 min : 9 sec HR (bpm): 78 SBP (mmHg): 118 DBP (mmHg): 65 Rest HR: 77 bpm Peak HR: 107 bpm Rest Sys BP: 143 mmHg Peak Sys BP: 127 mmHg Max Pred HR: 151 bpm % Max Pred HR: 71 % Target HR: 128 bpm Max RPP: 13,589 bpm*mmHg Termination Reason: Completed protocol Cardiac Symptoms: None Total Time: 1 min : 0 sec Rest Miller BP: 83 mmHg Peak Miller BP: 69 mmHg Total Dose: 0.4 mg Resting ECG Sinus rhythm, PAC's. Stress ECG No ST changes. Arrhythmias Transient episodes of atrial tachycardia. Report Signatures
[2023-11-13 08:37] LABS: Glucose Point of Care 132 mg/dl (65-105)
[2023-11-13] MEDS: POTASSIUM CHLORIDE 20 MEQ ER TABLET 40 MEQ PO (10:30)
[2023-11-13] MEDS: busPIRone HCL 10 MG TABLET PO ×3 (10:30→17:02)
[2023-11-13] MEDS: buPROPion HCL XL (24 HR) 150 MG TABCR PO (10:30)
[2023-11-13] MEDS: PRAVASTATIN SODIUM 20 MG TABLET 40 MG PO (10:30)
[2023-11-13] MEDS: PANTOPRAZOLE 40 MG TABLET PO (10:31)
[2023-11-13] MEDS: HYDROcodone/acetaminophen (*CRX) 10-325 MG TABLET 1 TAB PO ×2 (10:31→17:02)
[2023-11-13] MEDS: FENOFIBRATE 160 MG TABLET PO (10:31)
[2023-11-13] MEDS: ASPIRIN 81 MG ENTERIC TABLET PO (10:31)
[2023-11-13] MEDS: CALCIUM/VITAMIN D 500 MG/5 MCG (200 I.U.) TABLET PO (10:31)
[2023-11-13] MEDS: ENOXAPARIN 40 MG/0.4 ML SYRINGE SUB-Q (10:31)
[2023-11-13] MEDS: carvediloL 3.125 MG TABLET PO ×2 (10:31→20:01)
[2023-11-13 10:52] LABS: Troponin I 0.051 ng/mL (0.000-0.034)
[2023-11-13 11:53] LABS: Glucose Point of Care 141 mg/dl (65-105)
--- NOTE | 2023-11-13 15:08 | PM.IMPN ---
Progress Note: A&P Assessment and Plan (1) Wide-complex tachycardia: Code(s): R00.0 - Tachycardia, unspecified Status: Acute Assessment and Plan: Patient was found to have wide complex tachycardia while in the ED. Cardiology consulted. He is currently on amiodarone drip. Echocardiogram revealing EF reduced at 30-35% Lexiscan stress status post showing moderate size area of severe mixed infarct ischemia involving left ventricular apex and inferior wall with EF measuring 35% Nuclear med stress test: transient episodes of atrial tachycardia Plan for cardiac catheterization tomorrow (2) Renal insufficiency: Code(s): N28.9 - Disorder of kidney and ureter, unspecified Status: Acute Assessment and Plan: on admission BUN creatinine of 59/2.1. No previous labs to compare. Unknown if patient had renal disease prior. Renal ultrasound was unremarkable. Avoid nephrotoxic agents and renally dose all medications. Monitor BMP Trend labs (3) Low back pain: Code(s): M54.50 - Low back pain, unspecified Status: Acute Assessment and Plan: The patient presented to the emergency department for evaluation of pain allover and falls. He reports injuring his back several days ago in a fall and it sounds as though the low back pain he has been having is probably causing the other falls. Sensory motor is intact. Lumbar CT findings revealed multilevel severe lumbar degenerative disc disease, severe degenerative central canal narrowing at L4-L5, multilevel degenerative during neural foraminal narrowing. Analgesics are available as needed. PT/OT consulted. (4) Falls frequently: Code(s): R29.6 - Repeated falls Status: Acute Assessment and Plan: PT and OT ordered (5) Hypertension: Code(s): I10 - Essential (primary) hypertension Status: Acute Assessment and Plan: continue Coreg and nifedipine. Hold lisinopril and torsemide due to KETTY. (6) Dyslipidemia: Code(s): E78.5 - Hyperlipidemia, unspecified Status: Acute Assessment and Plan: continue home medication (7) Chronic obstructive pulmonary disease: Code(s): J44.9 - Chronic obstructive pulmonary disease, unspecified Status: Acute Assessment and Plan: albuterol p.r.n. (8) Gout: Code(s): M10.9 - Gout, unspecified Status: Acute Assessment and Plan: Tender and erythematous right great toe. Uric acid level elevated at 10.9 (9) Prediabetes: Code(s): R73.03 - Prediabetes Status: Acute Assessment and Plan: Insulin Lispro sliding scale, Accu-checks qAc and HS and Hold oral hypoglycemics Initiate hypoglycemic precautions Hemoglobin A1c 6.2 Subjective Date/time seen: 11/13/23 15:08 Interval history: Patient doing well with son at bedside. Patient is alert oriented x3. He is still having back pain but denies chest pain shortness of breath, nausea vomiting. His echocardiogram showed EF of 35% with moderate stenosis/ischemia on Lexiscan. Plan for cardiac catheterization tomorrow. This was discussed with both the patient and his son. Patient denies recent shortness of breath, chronic cough or lower extremity edema Exam Narrative: GENERAL: Comfortable, no acute distress HENMT: moist mucous membranes EYES: EOM intact b/l NECK: no lymphadenopathy RESPIRATORY: clear to auscultation, no increased respiratory effort CARDIO: Regular rate and rhythm GI: soft, nontender, bowel sounds present SKIN/EXTREMITIES: no rashes, no edema, no redness or tenderness NEURO: PROM intact, answers questions appropriately, A&O x4 Objective Data Vital Signs Vital Signs: Vital Signs - 24 hr 11/12/23 16:20 11/12/23 17:48 11/12/23 17:55 Temperature 97.6 F Pulse Rate 98 77 Respiratory Rate 18 12 Blood Pressure 124/52 L 124/92 H Pulse Oximetr
[2023-11-13 16:56] LABS: Glucose Point of Care 139 mg/dl (65-105)
[2023-11-13] MEDS: diphenhydrAMINE HCl CAP 25 MG CAPSULE PO (20:01)
[2023-11-13] MEDS: ACETAMINOPHEN 325 MG TABLET 650 MG PO (20:01)
[2023-11-13] MEDS: MONTELUKAST SODIUM 10 MG TABLET PO (20:02)
[2023-11-13] MEDS: MELATONIN 3 MG TABLET PO (20:06)
[2023-11-13 22:01] LABS: Glucose Point of Care 171 mg/dl (65-105)
[2023-11-14] VITALS (31 sets, daily range): BP systolic 95–138; BP diastolic 53–97; PULSE 51–71; RESP 12–18; TEMP 36.2–36.6; O2SAT 98–100
--- NOTE | 2023-11-14 03:33 | PC.NURSE ---
Patient's HR dropped to 49 bpm and has been sitting at 58-59 bpm while on playground monitor. Dr. Muniz notified of low HRs and responded with new orders to D/C amiodarone drip and start patient on amiodarone 200 mg PO BID in the morning.
[2023-11-14 04:15] LABS: Hematocrit 32.5 % (42.0-52.0); Hemoglobin 10.3 g/dL (14.0-18.0); Mean Corpuscular HGB Conc 31.7 g/dl (32-36); Mean Corpuscular Hemoglobin 28.9 pg (26-34); Mean Platelet Volume 11.1 fl (7.4-10.4); Platelet Count Result 198 k/mm3 (150-375); Red Blood Count 3.57 M/mm3 (4.6-6.20); Red Cell Distribution Width 13.4 % (11.5-14.5); White Blood Count 5.8 K/mm3 (4.5-10.0)
[2023-11-14 04:26] LABS: Anion Gap 7 mmol/L (4-12); Blood Urea Nitrogen 40 mg/dL (9-20); Calcium 8.9 mg/dL (8.4-10.2); Carbon Dioxide 23 mmol/L (22-30); Chloride 112 mmol/L (98-107); Estimated CRCL calculation 30 ml/min; Estimated Glomerular Filt Rate 33; Glucose 141 mg/dL (65-110); Potassium 3.6 mmol/L (3.4-5.0); Sodium 142 mmol/L (137-145)
[2023-11-14] MEDS: GABAPENTIN 300 MG CAPSULE 600 MG PO ×3 (05:54→20:31)
--- NOTE | 2023-11-14 07:26 | PM.PNCARD ---
Progress Note: A&P Assessment and Plan (1) Falls frequently: Code(s): R29.6 - Repeated falls Status: Acute Assessment and Plan: Could be due to weakness in legs from arthritis or related to arrhythmias. (2) Wide-complex tachycardia: Code(s): R00.0 - Tachycardia, unspecified Status: Acute Assessment and Plan: Started on Amiodarone to prevent recurrences of PVT and PAT. 11/13/23 Echo: EF 30-35%, severe LVE, grade I diastolic dysfunction (E/e' 14), mod LAE, mild AI, mod MAC, mild-mod MR, trace TR/PI. 11/13/23 lexiscan myoview stress test is abnormal with moderate size mixed infarct and ischemia in LV apex and inferior wall. Change Amiodarone drip to 200 mg PO BID. Discuss risks/benefits/alternative to LHC with patient and he is agreeable for procedure. [place] [facility] [place]. (3) Hypertension: Code(s): I10 - Essential (primary) hypertension Status: Acute Assessment and Plan: Stable. (4) Dyslipidemia: Code(s): E78.5 - Hyperlipidemia, unspecified Status: Acute Assessment and Plan: Changed Simvastatin to Pravastatin as he is going to be on Amiodarone. (5) Systolic dysfunction: Code(s): I51.9 - Heart disease, unspecified Status: Acute Assessment and Plan: Euvolemic. On Coreg. Holding Lisinopril in case contributing to CKD, but does not appear that is the case. Will discuss life vest. (6) Abnormal nuclear stress test: Code(s): R94.39 - Abnormal result of other cardiovascular function study Status: Acute Subjective Date/time seen: 11/14/23 07:26 Interval history: Denies chest pain, sob, dizziness. Exam Const: General: cooperative, healthy appearing and comfortable Orientation/consciousness: oriented to person, oriented to place and oriented to time Resp: Auscultation: clear to auscultation bilaterally, no crackles, no rales, no rhonchi and no wheezes Cardio: Rate: regular rate Rhythm: regular rhythm Heart sounds: no murmurs Peripheral pulses: dorsalis pedis present Neuro: General: oriented to person, oriented to place and oriented to time Extrem: Right lower extremity: no edema Left lower extremity: no edema Objective Data Vital Signs Vital Signs: Vital Signs - 24 hr 11/13/23 07:51 11/13/23 07:53 11/13/23 08:00 Temperature 97.2 F L 97.2 F L Pulse Rate 61 61 Respiratory Rate 24 H 24 H Blood Pressure 135/64 135/69 Pulse Oximetry 99 98 98 Oxygen Delivery Room Air 11/13/23 07:54 11/13/23 10:00 11/13/23 08:00 Temperature 97.2 F L Pulse Rate 67 84 Respiratory Rate 24 H Blood Pressure 115/62 131/61 101/58 L Pulse Oximetry 97 Oxygen Delivery 11/13/23 10:00 11/13/23 08:00 11/13/23 08:00 Temperature Pulse Rate 88 84 Respiratory Rate Blood Pressure 131/61 Pulse Oximetry 97 Oxygen Delivery Room Air 11/13/23 10:00 11/13/23 12:00 11/13/23 12:00 Temperature 97.8 F Pulse Rate 86 101 H 71 Respiratory Rate 16 Blood Pressure 105/49 L 105/49 L Pulse Oximetry 96 Oxygen Delivery 11/13/23 12:00 11/13/23 12:00 11/13/23 14:00 Temperature Pulse Rate 67 65 Respiratory Rate Blood Pressure Pulse Oximetry 96 Oxygen Delivery Room Air 11/13/23 14:00 11/13/23 15:04 11/13/23 14:00 Temperature 97.9 F Pulse Rate 92 66 Respiratory Rate 28 H Blood Pressure 120/50 L 120/50 L Pulse Oximetry 96 Oxygen Delivery Room Air 11/13/23 16:00 11/13/23 16:00 11/13/23 16:00 Temperature Pulse Rate 75 68 Respiratory Rate Blood Pressure 134/62 Pulse Oximetry Oxygen Delivery Room Air 11/13/23 17:09 11/13/23 17:09 11/13/23 16:00 Temperature 97.2 F L Pulse Rate 77 77 68 Respiratory Rate 20 Blood Pressure 134/62 134/62 134/62 Pulse Oximetry 99 Oxygen Delivery 11/13/23 18:00 11/13/23 18:00 11/13/23 18:00 Temperature 97.4 F L Pulse Rate 64 76 78 Respiratory Rate 16 Blood Pressure 120/78 120/78 Pulse
[2023-11-14 08:18] LABS: Glucose Point of Care 109 mg/dl (65-105)
[2023-11-14] MEDS: PRAVASTATIN SODIUM 20 MG TABLET 40 MG PO (08:35)
[2023-11-14] MEDS: AMIODARONE HCL 200 MG TABLET PO ×2 (08:35→17:02)
[2023-11-14] MEDS: carvediloL 3.125 MG TABLET PO ×2 (08:36→20:32)
[2023-11-14] MEDS: HYDROcodone/acetaminophen (*CRX) 10-325 MG TABLET 1 TAB PO ×2 (08:36→17:02)
[2023-11-14] MEDS: CALCIUM/VITAMIN D 500 MG/5 MCG (200 I.U.) TABLET PO (08:36)
[2023-11-14] MEDS: buPROPion HCL XL (24 HR) 150 MG TABCR PO (08:36)
[2023-11-14] MEDS: FENOFIBRATE 160 MG TABLET PO (08:36)
[2023-11-14] MEDS: PANTOPRAZOLE 40 MG TABLET PO (08:36)
[2023-11-14] MEDS: busPIRone HCL 10 MG TABLET PO ×3 (08:36→17:02)
[2023-11-14] MEDS: ASPIRIN 81 MG ENTERIC TABLET PO (08:36)
--- NOTE | 2023-11-14 08:49 | PM.CNCAR ---
Assessment and Plan Assessment and plan (1) Abnormal nuclear stress test: Code(s): R94.39 - Abnormal result of other cardiovascular function study Status: Acute (2) Systolic dysfunction: Code(s): I51.9 - Heart disease, unspecified Status: Acute (3) Wide-complex tachycardia: Code(s): R00.0 - Tachycardia, unspecified Status: Acute Plan Discussed cardiac catheterization with the patient, including indication for the procedure, procedure details, risks vs benefits, alternative management options, etc. Patient is agreeable to proceed. Will plan for LHC today. Of note, patient's SCr is 2.00 (was 2.10 on admission). Unclear if this is KETTY or CKD as we do not have previous values for comparison. Given renal dysfunction, patient is at higher risk for contrast-induced nephropathy. Continue ASA and statin. Further recommendations and plan pending results of cardiac catheterization. History of Present Illness History of Present Illness Consult date/time: 11/14/23 08:49 Requesting physician: Monty Muniz, Consult reason: Other (C) Reason For Visit: Wide Complex tachycardia/Back Pain Narrative: We are consulted for LHC by Dr. Muniz. This is a 68 year old male with diabetes mellitus, hypertension, hyperlipidemia, COPD, anxiety, depression who initially presented to [facility] for multiple falls. He had an episode of symptomatic wide complex tachycardia. He was started on Amiodarone. Dr. Muniz was consulted for Cardiology evaluation. Echocardiogram shows severe enlargement of LV, LVEF is 30-35%, mild AI, mild-moderate MR. Patient underwent Lexiscan, which shows moderate-sized area of severe mixed infarct and ischemia involving the left ventricular apex and inferior wall. LVEF on MPI is 35%. There is global hypokinesis. Given the wide complex tachycardia, abnormal echocardiogram and MPI, Dr. Muniz has requested LHC. Review of Systems Review of Systems: All systems reviewed & are unremarkable except as noted in HPI and below (HPI) [facility] Past Medical History Medical History Asthma Chronic obstructive pulmonary disease Hypertension Prediabetes Surgical History Surgical History History of ankle surgery History of back surgery Social History Social History Social History: Surrogate medical decision maker: Salvador and andrea Aviles. Code status: Full code. Smoking status: Former smoker Alcohol intake: never Substance use: never Do You Feel Safe in your Home?: Yes Lack of Transportation: No Lack of Food: Never True Current Housing: I Have Housing Concerned About Future Housing: No Difficulty Paying Gas/Electric Bills: No Difficulty Paying for Meds: No Currently Unemployed: No Education: Don't Know Difficulty w/ Childcare or Family Care: No Spiritual care concerns: No Meds Home Medications and Allergies Home Medications Medication Instructions Recorded Confirmed Type albuterol sulfate 90 mcg/actuation 1 puff inhalation Q4H PRN 03/10/22 11/12/23 History aerosol inhaler (Proventil HFA) Shortness Of Breath Or Wheezing aspirin 81 mg tablet,delayed 81 mg PO DAILY 03/10/22 11/12/23 History release (Adult Low Dose Aspirin) bupropion HCl 150 mg 24 hr tablet, 150 mg PO QAM 03/10/22 11/12/23 History extended release (Wellbutrin XL) buspirone 10 mg tablet 10 mg PO TID 03/10/22 11/12/23 History carvedilol 3.125 mg tablet 3.125 mg PO Q12H 03/10/22 11/12/23 History gabapentin 600 mg tablet 600 mg PO TID 03/10/22 11/12/23 History lisinopril 20 mg tablet 20 mg PO HS 03/10/22 11/12/23 History calcium carbonate 600 mg-vitamin 1 tablet PO DAILY 11/12/23 11/12/23 History D3 20 mcg (800 unit) tablet gemfibrozil 600 mg tablet 600 mg PO TIDWM 11/12/23 11/12/23 History hydrocodone 10 mg-acetaminophen 1 tablet
--- NOTE | 2023-11-14 08:53 | PM.IMPN ---
Progress Note: A&P Assessment and Plan (1) Wide-complex tachycardia: Code(s): R00.0 - Tachycardia, unspecified Status: Acute Assessment and Plan: Patient was found to have wide complex tachycardia while in the ED. - Cardiology consulted - Cardiology discontinued patients amiodarone drip today and started patient on Amiodarone 200 mg PO BID. - Echocardiogram revealing EF reduced at 30-35% with grade I diastolic dysfunction - Lexiscan stress status post showing moderate-sized area of severe mixed infarct and ischemia involving left ventricular apex and inferior wall. Global hypokinesis with left ventricular ejection fraction measuring 35%. - Nuclear med stress test: transient episodes of atrial tachycardia - Cardiac catheterization performed 11/[address] Pearl. (2) Renal insufficiency: Code(s): N28.9 - Disorder of kidney and ureter, unspecified Status: Acute Assessment and Plan: On admission BUN creatinine of 59/2.1. Unclear if this is KETTY or CKD as there is no previous labs to compare. - Renal ultrasound was unremarkable. - Avoid nephrotoxic agents and renally dose all medications. - Holding lisinopril in case contributing to CKD per cardiology - Monitor BMP (3) Low back pain: Code(s): M54.50 - Low back pain, unspecified Status: Acute Assessment and Plan: The patient presented to the emergency department for evaluation of pain allover and falls. He reports injuring his back several days ago in a fall and it sounds as though the low back pain he has been having is probably causing the other falls. - Sensory motor is intact. -Lumbar CT findings revealed multilevel severe lumbar degenerative disc disease, severe degenerative central canal narrowing at L4-L5, multilevel degenerative during neural foraminal narrowing. - Analgesics are available as needed. - PT/OT ordered (4) Falls frequently: Code(s): R29.6 - Repeated falls Status: Acute Assessment and Plan: PT and OT ordered. Recommending SNF. Discussed placement with patient and he is in agreement with the plan. (5) Hypertension: Code(s): I10 - Essential (primary) hypertension Status: Acute Assessment and Plan: Stable. Continue Coreg and nifedipine. Hold lisinopril and torsemide due to KETTY. (6) Dyslipidemia: Code(s): E78.5 - Hyperlipidemia, unspecified Status: Acute Assessment and Plan: Due to patient being on amiodarone, he will be changed from simvastatin to pravastatin per cardiology. (7) Chronic obstructive pulmonary disease: Code(s): J44.9 - Chronic obstructive pulmonary disease, unspecified Status: Acute Assessment and Plan: In no acute exacerbation. - albuterol p.r.n. (8) Gout: Code(s): M10.9 - Gout, unspecified Status: Acute Assessment and Plan: Tender and erythematous right great toe. Uric acid level elevated at 10.9 (9) Prediabetes: Code(s): R73.03 - Prediabetes Status: Acute Assessment and Plan: - hypoglycemia protocol - POC blood glucose - home medication - metformin - correct regimen ordered - low dose TIDWM and HS - A1C 6.2 Time Spent With Patient Time with patient: 25 - 35 minutes Subjective Date/time seen: 11/14/23 08:53 Interval history: 67-year-old male with borderline diabetes, hypertension, hyperlipidemia, chronic obstructive pulmonary disease, anxiety, depression, and neuropathy who presented to the emergency department via EMS from home for evaluation of pain all over and multiple falls. Patient is pleasant sitting up in his chair following his cardiac catheterization. Yesterday patient was noted to be confused requiring a sitter. On exam he is alert and oriented, answering questions appropriately. He states that he wants to go home, however discussed with patient that PT/OT recommend SNF due to
--- NOTE | 2023-11-14 09:03 | WPDMODSED ---
Moderate Sedation Note-Pt Data Patient Data Diagnosis: Coronary artery disease Present Complaint: Coronary artery disease Procedure to be performed/Plan: Coronary angiography, left heart cath, +/- PCI Allergies Allergy/AdvReac Type Severity Reaction Status Date / Time No Known Allergies Allergy Verified 11/12/23 12:33 Home Medications Medication Instructions Recorded Confirmed Type albuterol sulfate 90 mcg/actuation 1 puff inhalation Q4H PRN 03/10/22 11/12/23 History aerosol inhaler (Proventil HFA) Shortness Of Breath Or Wheezing aspirin 81 mg tablet,delayed 81 mg PO DAILY 03/10/22 11/12/23 History release (Adult Low Dose Aspirin) bupropion HCl 150 mg 24 hr tablet, 150 mg PO QAM 03/10/22 11/12/23 History extended release (Wellbutrin XL) buspirone 10 mg tablet 10 mg PO TID 03/10/22 11/12/23 History carvedilol 3.125 mg tablet 3.125 mg PO Q12H 03/10/22 11/12/23 History gabapentin 600 mg tablet 600 mg PO TID 03/10/22 11/12/23 History lisinopril 20 mg tablet 20 mg PO HS 03/10/22 11/12/23 History calcium carbonate 600 mg-vitamin 1 tablet PO DAILY 11/12/23 11/12/23 History D3 20 mcg (800 unit) tablet gemfibrozil 600 mg tablet 600 mg PO TIDWM 11/12/23 11/12/23 History hydrocodone 10 mg-acetaminophen 1 tablet PO BID 11/12/23 11/12/23 History 325 mg tablet meclizine 25 mg tablet 25 mg PO TID PRN Dizziness Or 11/12/23 11/12/23 History Vertigo metformin 1,000 mg tablet 500 mg PO TIDWM 11/12/23 11/12/23 History montelukast 10 mg tablet 10 mg PO HS 11/12/23 11/12/23 History nifedipine 30 mg tablet,extended 30 mg PO DAILY 11/12/23 11/12/23 History release 24 hr omeprazole 20 mg capsule,delayed 20 mg PO DAILY 11/12/23 11/12/23 History release simvastatin 40 mg tablet 40 mg PO HS 11/12/23 11/12/23 History torsemide 20 mg tablet 40 mg PO DAILY 11/12/23 11/12/23 History Current Medications: Active Medications Acetaminophen (Acetaminophen 325 Mg Tablet) 650 mg PO Q6H PRN PRN Reason: Mild Pain (1-3) or Fever Last Admin: 11/13/23 20:01 Dose: 650 mg Hydrocodone Bitart/Acetaminophen (Hydrocodone/Acetaminophen (*Crx) 10-325 Mg Tablet) 1 tab PO BID [facility] Last Admin: 11/14/23 08:36 Dose: 1 tab Albuterol (Albuterol Sulfate (*Sp) Aerosol 1 Puff) 1 puff INHALATION Q4HRT PRN PRN Reason: Shortness Of Breath Or Wheezing Amiodarone HCl (Amiodarone Hcl 200 Mg Tablet) 200 mg PO BIDWM [facility] Last Admin: 11/14/23 08:35 Dose: 200 mg Aspirin (Aspirin 81 Mg Enteric Tablet) 81 mg PO DAILY [facility] Last Admin: 11/14/23 08:36 Dose: 81 mg Bupropion HCl (Bupropion Hcl Xl (24 Hr) 150 Mg Tabcr) 150 mg PO QAM [facility] Last Admin: 11/14/23 08:36 Dose: 150 mg Buspirone HCl (Buspirone Hcl 10 Mg Tablet) 10 mg PO TID [facility] Last Admin: 11/14/23 08:36 Dose: 10 mg Calcium Carbonate (Calcium/Vitamin D 500 Mg/5 Mcg (200 I.U.) Tablet) 500 mg PO DAILY [facility] Stop: 12/13/23 08:59 Last Admin: 11/14/23 08:36 Dose: 500 mg Carvedilol (Carvedilol 3.125 Mg Tablet) 3.125 mg PO Q12HR [facility] Last Admin: 11/14/23 08:36 Dose: 3.125 mg Dextrose (Dextrose 50% 25 Gm/50 Ml Syringe) 12.5 gm IV PUSH PRN PRN; Protocol PRN Reason: Hypoglycemia Diphenhydramine HCl (Diphenhydramine Hcl Cap 25 Mg Capsule) 25 mg PO HS [facility] Last Admin: 11/13/23 20:01 Dose: 25 mg Enoxaparin Sodium (Enoxaparin 40 Mg/0.4 Ml Syringe) 40 mg SUB-Q DAILY [facility] Last Admin: 11/14/23 08:42 Dose: Not Given Fenofibrate (Fenofibrate 160 Mg Tablet) 160 mg PO DAILY [facility] Last Admin: 05/01/24 08:36 Dose: 160 mg Gabapentin (Gabapentin 300 Mg Capsule) 600 mg PO Q8HR [facility] Last Admin: 11/14/23 05:54 Dose: 600 mg Glucagon (Glucagon For Inj 1 Mg Vial) 1 mg IM PRN PRN; Protocol PRN Reason: Hypoglycemia Glucose (Glucose Oral Gel 15 Gm Of Glucse In 37.5 Gm Tube) 15 gm PO PRN PRN; Protocol PRN Reason: Hypoglycemia Dextrose (Dextrose 5% 1,000 Ml) 1,000 mls @ 100 mls/hr IVPB PRN PRN; Protocol PRN Reason: Hypoglycemia Insulin Aspart (Insulin Aspart (*Bkc) 100 Units/Ml) 2
--- NOTE | 2023-11-14 09:04 | WPDCARDPROC ---
Cardiac Cath Procedure Note Date of procedure:: 11/14/23 Performing physician:: CATHETERIZATION LABORATORY REPORT Procedure Date: 11/14/2023 Electric Tripper Machine Operator: Pratibha Pearl M.D., [facility]? Referring Physician: Dr. Monty Muniz ? Anesthesia: Versed and Fentanyl were ordered and given in my presence at 09:43, procedure ended at 10:09. Supervision of nurse monitored moderate sedation with Versed and Fentanyl was provided for 26 minutes. Total of Versed 1mg and Fentanyl 75mcg were administered by the Helper Coordinator RN Karma Hernandez. Pre-op Diagnosis: Coronary artery disease Post-op Diagnosis: 1. Single vessel coronary artery disease with PROPELLER MECHANIC of the RCA 2. Elevated left ventricular end-diastolic pressure of 25mmHg Procedure(s): 1. Moderate sedation 2. Ultrasound-guided access of the right radial artery 3. Coronary angiography 4. Left heart catheterization Access Site: Right radial artery Brief History and Clinical Indications: Patient is a 68 year old male who is referred for [facility] for wide complex tachycardia, heart failure with reduced LVEF, abnormal MPI. All risks, benefits and alternatives to left heart catheterization with or without percutaneous coronary intervention was discussed at length with the patient. Risk of complications including but not limited to bleeding, infection, arrhythmia, stroke, worsening kidney function, blood loss, groin hematoma, limb loss, emergency coronary artery bypass grafting, and even were discussed with the patient and all questions were answered. The patient understood and wished to proceed. Time out called, patient name, date of , medical record number, allergies, procedure performed, identify Electric Tripper Machine Operator, patient and staff member concurred with accurate data, procedure carried on. Findings: LEFT HEART CATHETERIZATION FINDINGS: 1. Left main: The left main is calcified. The left main coronary artery is widely patent without any significant obstructive disease. 2. Left anterior descending: Heavy calcifications throughout the proximal and mid LAD. The LAD has luminal irregularities. The first diagonal branch is a large caliber vessel with mild ostial disease. No significant obstructive angiographic disease. 3. Left circumflex: Heavy calcifications seen in LCX/OM. The proximal LCX has mild disease. The AV groove circumflex is diminutive. Large caliber OM branch has mild diffuse disease. No significant obstructive angiographic disease. 4. Right coronary artery: The RCA is the dominant vessel. Heavy calcifications seen throughout the RCA. The proximal RCA has mild disease. The RCA is PROPELLER MECHANIC in the mid portion. There are well-formed [id number] collaterals filling the distal RCA territory. 5. Left ventricle: A. End-diastolic pressure 25mmHg. B. LV gram deferred. C. No significant gradient across aortic valve on catheter pullback. Description of Procedure: Informed consent signed and placed in the chart. Patient transferred to lab[employer] producing [employer] room. Prepped and draped in usual sterile fashion. 2% lidocaine injected subcutaneously in right wrist area. 22-gauge venipuncture catheter used to access the right radial artery under ultrasound guidance. 6-FR slender sheath placed in right radial artery. Nitroglycerine and Verapamil were given intraarterial through the sheath. Versacore wire advanced under fluoroscopy Unable to engage the left main with 5F Tig 4 diagonstic catheter. 5F Tig 4 diagnostic catheter engaged Right Coronary Artery 5F FL 4 diagnostic catheter engaged Left Main Coronary Artery. Multiple orthogonal angiogram obtained and reviewed 5F Pigtail diagnostic catheter crossed aortic valve to obtain LVEDP, LV angiogram deferred. Hemostasis was achieved by application of TR band. Post Operative Condition: Stable No significant blood loss Disposition: Floor Plan: The patient will be monitored in the recovery area. The above findings were discussed with the referring physician. Con
--- NOTE | 2023-11-14 09:56 | PCPTNOTE ---
The patient treatment was not able to be completed on 11/14/2023 due to patient out of the room for a procedure. Will plan to continue treatment per plan of care.
[2023-11-14 15:40] LABS: Glucose Point of Care 133 mg/dl (65-105)
[2023-11-14] MEDS: SODIUM CHLORIDE 0.9% IV 1,000 ML 125 ML IV CONT (17:01)
[2023-11-14 19:09] LABS: Amphetamine Screen Urine Negative (Negative); Barbiturate Screen Urine Negative (Negative); Benzodiazepines Screen Urine Positive (Negative); Cannabinoid Screen Urine Negative (Negative); Cocaine Screen Urine Negative (Negative); Methadone Screen Urine Negative (Negative); Opiate Screen Urine Positive (Negative); Phencyclidine Screen Urine Negative (Negative)
[2023-11-14] MEDS: diphenhydrAMINE HCl CAP 25 MG CAPSULE PO (20:31)
[2023-11-14] MEDS: MONTELUKAST SODIUM 10 MG TABLET PO (20:32)
[2023-11-14] MEDS: MELATONIN 3 MG TABLET PO (20:32)
[2023-11-14 20:33] LABS: Glucose Point of Care 188 mg/dl (65-105)
[2023-11-15] VITALS (16 sets, daily range): BP systolic 115–135; BP diastolic 55–70; PULSE 58–74; RESP 18; TEMP 35.7–36.6; O2SAT 97–100
[2023-11-15 04:13] LABS: Basophils Percent Auto 0.5 % (0.2-1.2); Eosinophils Absolute Auto 0.2 K/mm3 (0-0.3); Eosinophils Percent Auto 3.6 % (0-4.4); Hematocrit 32.5 % (42.0-52.0); Immature Granulocyte Absolute 0.04 K/mm3 (0.00-0.031); Immature Granulocyte Percent A 0.7 % (0-0.5); Lymphocytes Absolute Auto 1.33 K/mm3 (0.9-3.2); Lymphocytes Percent Auto 21.9 % (18.3-44.2); Mean Corpuscular HGB Conc 30.8 g/dl (32-36); Mean Corpuscular Hemoglobin 28.4 pg (26-34); Mean Corpuscular Volume 92.3 fl (80-100); Mean Platelet Volume 11.3 fl (7.4-10.4); Monocytes Absolute Auto 0.4 K/mm3 (0.1-0.6); Monocytes Percent Auto 6.3 % (2.6-8.5); Neutrophils Absolute Auto 4.1 K/mm3 (1.3-6.7); Platelet Count Result 189 k/mm3 (150-375); Red Blood Count 3.52 M/mm3 (4.6-6.20); Red Cell Distribution Width 13.4 % (11.5-14.5); White Blood Count 6.1 K/mm3 (4.5-10.0)
[2023-11-15 04:28] LABS: Alanine Aminotransferase 30 U/L (6-50); Albumin Level 3.1 g/dL (3.5-5.1); Alkaline Phosphatase 89 U/L (38-126); Anion Gap 8 mmol/L (4-12); Aspartate Amino Transferase 21 U/L (17-59); Bilirubin,Total 0.3 mg/dL (0.2-1.3); Blood Urea Nitrogen 28 mg/dL (9-20); Calcium 8.7 mg/dL (8.4-10.2); Carbon Dioxide 21 mmol/L (22-30); Chloride 113 mmol/L (98-107); Estimated CRCL calculation 31 ml/min; Estimated Glomerular Filt Rate 35; Glucose 130 mg/dL (65-110); Potassium 3.7 mmol/L (3.4-5.0); Sodium 142 mmol/L (137-145)
[2023-11-15] MEDS: GABAPENTIN 300 MG CAPSULE 600 MG PO ×2 (05:04→14:43)
--- NOTE | 2023-11-15 06:05 | ECG_ITS ---
SEE SCANNED COPY FOR CONFIRMED REPORT. MTDD
[2023-11-15 07:32] LABS: Glucose Point of Care 106 mg/dl (65-105)
--- NOTE | 2023-11-15 07:55 | PM.PNCARD ---
Progress Note: A&P Assessment and Plan (1) Falls frequently: Code(s): R29.6 - Repeated falls Status: Acute Assessment and Plan: Could be due to weakness in legs from arthritis or related to arrhythmias. (2) Wide-complex tachycardia: Code(s): R00.0 - Tachycardia, unspecified Status: Acute Assessment and Plan: On Amiodarone to prevent recurrences of PVT and PAT. 11/13/23 Echo: EF 30-35%, severe LVE, grade I diastolic dysfunction (E/e' 14), mod LAE, mild AI, mod MAC, mild-mod MR, trace TR/PI. 11/13/23 lexiscan myoview stress test is abnormal with moderate size mixed infarct and ischemia in LV apex and inferior wall. 11/14/23 [facility] with Dr. Pearl: LAD with calcifications in prox to mid LAD, 1st Diag with mild ostial disease, LCx with calcifications and mild disease, RCA with calcifications throughout and mild prox RCA disease, mid portion is occluded with left to right collaterals. (3) Hypertension: Code(s): I10 - Essential (primary) hypertension Status: Acute Assessment and Plan: Stable. (4) Dyslipidemia: Code(s): E78.5 - Hyperlipidemia, unspecified Status: Acute Assessment and Plan: Changed Simvastatin to Pravastatin as he is going to be on Amiodarone. (5) Systolic dysfunction: Code(s): I51.9 - Heart disease, unspecified Status: Acute Assessment and Plan: Euvolemic. On Coreg. Start Losartan 25 mg daily, Jardiance 10 mg daily, and Spironolactone 25 mg daily. Discuss life vest to prevent sudden cardiac arrest and he is interested. Order placed. Subjective Date/time seen: 11/15/23 07:55 Interval history: Denies chest pain, sob, dizziness. Exam Const: General: cooperative, healthy appearing and comfortable Orientation/consciousness: oriented to person, oriented to place and oriented to time Resp: Auscultation: clear to auscultation bilaterally, no crackles, no rales, no rhonchi and no wheezes Cardio: Rate: regular rate Rhythm: regular rhythm Heart sounds: no murmurs Peripheral pulses: dorsalis pedis present Neuro: General: oriented to person, oriented to place and oriented to time Extrem: Right lower extremity: no edema Left lower extremity: no edema Objective Data Vital Signs Vital Signs: Vital Signs - 24 hr 11/14/23 08:09 11/14/23 08:09 11/14/23 08:00 Temperature Pulse Rate 71 Respiratory Rate Blood Pressure 134/62 125/97 H Pulse Oximetry Oxygen Delivery 11/14/23 08:00 11/14/23 10:40 11/14/23 10:45 Temperature Pulse Rate 58 L 55 L Respiratory Rate 14 15 Blood Pressure 119/62 118/59 L Pulse Oximetry 100 98 Oxygen Delivery Room Air Room Air Room Air 11/14/23 11:00 11/14/23 11:15 11/14/23 11:30 Temperature Pulse Rate 52 L 59 L 51 L Respiratory Rate 12 17 14 Blood Pressure 122/63 116/65 116/53 L Pulse Oximetry 100 98 98 Oxygen Delivery Room Air Room Air Room Air 11/14/23 11:45 11/14/23 12:00 11/14/23 12:25 Temperature Pulse Rate 57 L 58 L 58 L Respiratory Rate 13 13 14 Blood Pressure 120/66 118/68 119/63 Pulse Oximetry 100 100 Oxygen Delivery Room Air Room Air Room Air 11/14/23 12:30 11/14/23 13:00 11/14/23 13:00 Temperature 97.6 F Pulse Rate 57 L 57 L Respiratory Rate 16 16 Blood Pressure 121/56 L 95/83 L Pulse Oximetry 100 98 Oxygen Delivery Room Air Room Air 11/14/23 14:00 11/14/23 13:00 11/14/23 14:00 Temperature 97.5 F L Pulse Rate 59 L 58 L 57 L Respiratory Rate 15 Blood Pressure 118/60 Pulse Oximetry 100 Oxygen Delivery 11/14/23 15:00 11/14/23 15:43 11/14/23 16:00 Temperature 97.4 F L 97.9 F Pulse Rate 58 L 61 Respiratory Rate 16 18 Blood Pressure 121/66 129/66 Pulse Oximetry 100 98 Oxygen Delivery Room Air 11/14/23 16:00 11/14/23 18:00 11/14/23 20:00 Temperature 97.7 F Pulse Rate 55 L 63 64 Respiratory Rate 18 Blood Pressure 128/63 Pulse Oximetry 100 Oxygen Delivery 11/14/23 20:06
[2023-11-15] MEDS: PANTOPRAZOLE 40 MG TABLET PO (08:25)
[2023-11-15] MEDS: ASPIRIN 81 MG ENTERIC TABLET PO (08:25)
[2023-11-15] MEDS: ENOXAPARIN 40 MG/0.4 ML SYRINGE SUB-Q (08:25)
[2023-11-15] MEDS: SPIRONOLACTONE 25 MG TABLET PO (08:25)
[2023-11-15] MEDS: PRAVASTATIN SODIUM 20 MG TABLET 40 MG PO (08:25)
[2023-11-15] MEDS: AMIODARONE HCL 200 MG TABLET PO ×2 (08:25→16:04)
[2023-11-15] MEDS: carvediloL 3.125 MG TABLET PO (08:25)
[2023-11-15] MEDS: HYDROcodone/acetaminophen (*CRX) 10-325 MG TABLET 1 TAB PO ×2 (08:25→16:05)
[2023-11-15] MEDS: buPROPion HCL XL (24 HR) 150 MG TABCR PO (08:25)
[2023-11-15] MEDS: EMPAGLIFLOZIN 10 MG TABLET PO (08:25)
[2023-11-15] MEDS: LOSARTAN POTASSIUM 25 MG TABLET PO (08:26)
[2023-11-15] MEDS: CALCIUM/VITAMIN D 500 MG/5 MCG (200 I.U.) TABLET PO (08:26)
[2023-11-15] MEDS: busPIRone HCL 10 MG TABLET PO ×3 (08:26→16:05)
[2023-11-15] MEDS: FENOFIBRATE 160 MG TABLET PO (08:26)
--- NOTE | 2023-11-15 10:20 | PC.NURSE ---
Pt to MRI via wheelchair.
--- NOTE | 2023-11-15 11:03 | PC.NURSE ---
Pt returned from MRI via wheelchair.
[2023-11-15 11:32] LABS: Glucose Point of Care 112 mg/dl (65-105)
--- NOTE | 2023-11-15 13:45 | PM.DS ---
DS: Admitting Diagnosis Discharge Date 11/15/23 Admitting Diagnosis Wide complex tachycardia Renal insufficiency Low back pain Frequent falls Hypertension Dyslipidemia Chronic obstructive pulmonary disease Gout Prediabetes DS: Discharge Diagnosis Discharge Diagnosis (1) Wide-complex tachycardia: Code(s): R00.0 - Tachycardia, unspecified Status: Acute (2) Renal insufficiency: Code(s): N28.9 - Disorder of kidney and ureter, unspecified Status: Acute (3) Low back pain: Code(s): M54.50 - Low back pain, unspecified Status: Acute (4) Falls frequently: Code(s): R29.6 - Repeated falls Status: Acute (5) Hypertension: Code(s): I10 - Essential (primary) hypertension Status: Acute (6) Dyslipidemia: Code(s): E78.5 - Hyperlipidemia, unspecified Status: Acute (7) Chronic obstructive pulmonary disease: Code(s): J44.9 - Chronic obstructive pulmonary disease, unspecified Status: Acute (8) Gout: Code(s): M10.9 - Gout, unspecified Status: Acute (9) Prediabetes: Code(s): R73.03 - Prediabetes Status: Acute DS: Summary Hospital Course Reason for hospitalization: Wide complex tachycardia Renal insufficiency Low back pain Frequent falls Hypertension Dyslipidemia Chronic obstructive pulmonary disease Gout Prediabetes Hospital Course: 67-year-old male with borderline diabetes, hypertension, hyperlipidemia, chronic obstructive pulmonary disease, anxiety, depression, and neuropathy who presented to the emergency department via EMS from home for evaluation of pain all over and multiple falls. Patient has chronic low back pain which could be contributing to the falls. A UDS was obtained and was positive for opiates and benzos. Patient takes [place] for pain, however he is on no medication that would cause benzos to be positive. Discussed this with the patient and he denies the use of benzos. Though patient denies benzo use, further discussed with him that the use of benzos could be contributing to his falls due to confusion, sedation and weakness. He states understanding. Patient was evaluated by PT/OT who recommend home health. Plan is for [facility] to continue therapy. Patient was found to have wide complex tachycardia while in the ED. Cardiology was consulted and patient was started on an amiodarone drip which was later changes to 200 mg PO BID. An Echocardiogram revealing EF reduced at 30-35% with grade I diastolic dysfunction, lexiscan stress status post showing?moderate-sized area of severe mixed infarct and ischemia involving left ventricular apex and inferior wall, global hypokinesis with left ventricular ejection fraction measuring 35%. A cardiac catheterization was performed on 11/[address] Pearl that revealed LAD with calcifications in prox to mid LAD, 1st Diag with mild ostial disease, LCx with calcifications and mild disease, RCA with calcifications throughout and mild prox RCA disease, mid portion is occluded with left to right collaterals. Patient will remain on his current dose of carvedilol. He was started on losartan 25 mg daily, jardiance 10 mg daily, and spironolactone 25 mg daily. Since he is now on amiodarone, his simvastatin was switched to pravastatin. His lisinopril and nifedipine have been discontinued as well. A life vest was placed prior to discharge. He is to follow up with cardiology in 2 weeks. Patient discharged home with home health in a stable condition. He is to follow up with cardiology in 2 weeks and his PCP in 1 week. Status at Discharge Functional status at discharge: independent ambulation Time Spent with Patient Time attestation: Total time spent providing and/or coordinating discharge services: Time spent: Greater than 30 minutes Exam Narrative: AF HR 58 RR 18 SpO2 100 BP 123/55 General: unkempt male in no acute respiratory distress who is nontoxic appearing, sitting up in his chava
[2023-11-15] MEDS: ACETAMINOPHEN 325 MG TABLET 650 MG PO (14:46)
--- NOTE | 2023-11-15 14:46 | PCPTNOTE ---
Attempted to see patient for PT, however patient refused. Patient reported he was too sore to do therapy.
--- NOTE | 2023-11-15 14:50 | PCOTNOTE ---
Attempted to see Patient at this time. Patient stated, having to much pain, NO, RN gave medication. RN verbalized she gave medication and is supposed to discharge home with home health.
== END 2023-11-15 16:59 | disposition home health service (06) | DRG 287 ==
LOC: ANHED 16:04 → ANHIMU 16:51
PROVIDERS: Internal Medicine; Internal Medicine Critical Care Medicine; Physician Assistant; Student in an Organized Health Care Education/Training Program; Admitting Provider Internal Medicine; Emergency Provider Emergency Medicine; PCP Nurse Practitioner Family; Visit Provider General Practice
PROC: 4A023N7 Measurement of Cardiac Sampling and Pressure, Left Heart, Percutaneous Approach (ICD-10-PCS; CPT 93452; principal; 2023-11-14 09:00)
DX: R00.0 Tachycardia, unspecified (principal); I25.10 Atherosclerotic heart disease of native coronary artery without angina pectoris; N28.9 Disorder of kidney and ureter, unspecified; J44.9 Chronic obstructive pulmonary disease, unspecified; R73.03 Prediabetes; M10.9 Gout, unspecified; I10 Essential (primary) hypertension; E78.5 Hyperlipidemia, unspecified; R29.6 Repeated falls; G62.9 Polyneuropathy, unspecified
CPT/HCPCS: 36415; 70450; 71045; 72125; 72131; 72158; 76775; 78452; 78582; 80048; 80053; 80307; 82550; 82607; 82948; 83036; 83605; 83735; 84145; 84443; 84484; 84550; 85025; 85027; 85380; 85610; 85652; 85730; 86140; 87040; 93005; 93017; 93306; 93458; 93970; 96365; 96366; 97110; 97161; 97165; 97530; 99285; A9270; A9502; A9540; A9558; A9577; C1769; C1887; C1894; G0378; J0282; J1644; J1650; J2250; J2305; J2785; J3010; J7030; J7040